=== PATIENT | female | born 1950 | race Caucasian/White ===

== ENCOUNTER → 2017-12-29 | Outpatient (CLI) | payer OTHER ==
[~2017-12-29] MED LIST: CALC500T51 PO; CALC600T4 PO; CELE200C PO; CHOL4PAC2 PO; CYCL1DRO EACHEYE; CYCL1DRO OP; LOPE2CAP94 PO; MESA10003 PR; MULT9LIQ5 PO; PANT40TA5 PO; RALO60TA PO; RISE35TA3 PO
== END | disposition home or self-care (01) ==
LOC: CFH 13:42
PROVIDERS: ATTEND Nurse Practitioner
DX: J84.9 Interstitial pulmonary disease, unspecified (principal)
CPT/HCPCS: 71250

== ENCOUNTER → 2018-01-22 | Outpatient (CLI) | payer OTHER ==
[~2018-01-22] MED LIST changes: +OMNIPAQUE 350 MG/ML, 100ML BOTTLE ONE
== END | disposition home or self-care (01) ==
LOC: CFH 08:02
PROVIDERS: ATTEND Family Medicine
DX: J92.9 Pleural plaque without asbestos (principal); J43.9 Emphysema, unspecified; R13.10 Dysphagia, unspecified; R05 Cough
CPT/HCPCS: 70491; 82565; Q9967

== ENCOUNTER 2018-01-23 10:53 | Emergency (ER) | payer OTHER ==
[~2018-01-23] VITALS: Ht 160 cm; Wt 65.5 kg
[~2018-01-23 10:53] MED LIST changes: -OMNIPAQUE 350 MG/ML, 100ML BOTTLE ONE
[2018-01-23 11:48] LABS: BASOPHILS # (AUTO) 0.05 x10^3/uL (0-0.1); BASOPHILS % (AUTO) 1 % (0-1); EOSINOPHILS # (AUTO) 0.16 x10^3/uL (0-0.4); EOSINOPHILS % (AUTO) 4 % (1-7); LYMPHOCYTES % (AUTO) 27 % (22-44); MD NO; MEAN CORPUSCULAR HEMOGLOBIN 33.5 pg (27.0-34.8); MEAN CORPUSCULAR HGB CONC 33.7 g/dL (32.4-35.8); MEAN CORPUSCULAR VOLUME 99.4 fL (80-100); MEAN PLATELET VOLUME 8.9 fL (7.4-10.4); MONOCYTES # (AUTO) 0.49 x10^3/uL (0.2-0.8); MONOCYTES % (AUTO) 13 % (2-9); NEUTROPHILS # (AUTO) 2.08 x10^3/uL (1.8-6.8); NEUTROPHILS % (AUTO) 55 % (42-75); PLATELET COUNT 244 x10^3/uL (130-400); RED BLOOD COUNT 4.39 x10^6/uL (3.82-5.3); RED CELL DISTRIBUTION WIDTH 12.6 % (9.6-15.2)
[2018-01-23 11:54] LABS: ALBUMIN 3.3 g/dL (3.4-5.0); ANION GAP 7 mmol/L (5-15); CALCIUM 9.1 mg/dL (8.5-10.1); CHLORIDE 105 mmol/L (98-107); CREATININE 0.46 mg/dL (0.55-1.02)
[2018-01-23 13:08] VITALS: BP 140/78
== END 2018-01-23 13:13 | disposition home or self-care (01) ==
LOC: ED 12:00
DX: L03.221 Cellulitis of neck (principal); M06.9 Rheumatoid arthritis, unspecified
CPT/HCPCS: 36415; 80048; 82040; 85025; 99284; J7512

== ENCOUNTER → 2018-04-21 | Outpatient (CLI) | payer MEDICARE, OTHER ==
[~2018-04-21] MED LIST changes: +VIT1CAPS16 PO; +[UNRECOGNIZED DRUG - CODE] IV; +prednisone PO
== END | disposition home or self-care (01) ==
LOC: WOUND 14:08
PROVIDERS: ATTEND Nurse Practitioner Family
DX: S31.40XA Unspecified open wound of vagina and vulva, initial encounter (principal); N81.83 Incompetence or weakening of rectovaginal tissue; N82.9 Female genital tract fistula, unspecified; J43.9 Emphysema, unspecified; L24.9 Irritant contact dermatitis, unspecified cause; M17.0 Bilateral primary osteoarthritis of knee; M81.0 Age-related osteoporosis without current pathological fracture; K21.9 Gastro-esophageal reflux disease without esophagitis; Z87.891 Personal history of nicotine dependence; X58.XXXA Exposure to other specified factors, initial encounter; Y93.89 Activity, other specified; Y92.89 Other specified places as the place of occurrence of the external cause; Y99.8 Other external cause status
CPT/HCPCS: 99215

== ENCOUNTER 2018-04-23 11:50 | Day surgery (SDC) | payer MEDICARE ==
[2018-04-22 12:21] LABS: MICROSCOPIC INDICATED
[2018-04-22 12:45] LABS: CULTURE INDICATED? YES
[~2018-04-23] VITALS: Ht 160 cm; Wt 61.3 kg
[2018-04-23 12:43] VITALS: BP 123/74
[2018-04-23] MEDS ORDERED: LACTATED RINGERS 1,000 ML IV SCH (13:11)
[2018-04-23] MEDS ORDERED: METOPROLOL 1 MG/ML, 5ML IV PRN (14:00)
[2018-04-23] MEDS ORDERED: ONDANSETRON 2MG/ML, 2ML IV PRN (14:00)
[2018-04-23] MEDS ORDERED: FENTANYL PF 100 MCG/2ML IV PRN (14:00)
[2018-04-23] MEDS ORDERED: LABETALOL 5MG/ML, 20ML IV PRN (14:00)
[2018-04-23] MEDS ORDERED: hydrALAzine 20 MG/ML, 1ML IV PRN (14:00)
[2018-04-23] MEDS ORDERED: PROPOFOL 10 MG/ML, 20ML ONE (14:10)
== END 2018-04-23 16:00 | disposition home or self-care (01) ==
LOC: OUT 11:50
PROVIDERS: ATTEND Internal Medicine Gastroenterology
DX: N82.3 Fistula of vagina to large intestine (principal); K52.9 Noninfective gastroenteritis and colitis, unspecified; K63.3 Ulcer of intestine; K21.9 Gastro-esophageal reflux disease without esophagitis; Z87.39 Personal history of other diseases of the musculoskeletal system and connective tissue; Z98.890 Other specified postprocedural states; Z90.49 Acquired absence of other specified parts of digestive tract; Z87.891 Personal history of nicotine dependence; Z88.8 Allergy status to other drugs, medicaments and biological substances; Z91.041 Radiographic dye allergy status
CPT/HCPCS: 45380; 81001; 87077; 87086; 87186; 88305; 93005; J2704; J7120

== ENCOUNTER → 2018-04-28 | Outpatient (CLI) | payer MEDICARE | END | disposition home or self-care (01) | LOC: WOUND 15:08 | PROVIDERS: ATTEND Nurse Practitioner Family | DX: L24.9 Irritant contact dermatitis, unspecified cause (principal); N81.83 Incompetence or weakening of rectovaginal tissue; N82.9 Female genital tract fistula, unspecified; J43.9 Emphysema, unspecified; M17.0 Bilateral primary osteoarthritis of knee; K21.9 Gastro-esophageal reflux disease without esophagitis; M81.0 Age-related osteoporosis without current pathological fracture; Z87.891 Personal history of nicotine dependence; Z90.49 Acquired absence of other specified parts of digestive tract | CPT/HCPCS: 99214 ==

== ENCOUNTER 2018-06-01 17:07 | Emergency (ER) | payer MEDICARE ==
[~2018-06-01] VITALS: Ht 160 cm; Wt 59.7 kg
[2018-06-01] MEDS ORDERED: ASPIRIN 81 MG TABLET CHEW PO ONE (18:00)
[2018-06-01 18:06] LABS: BASOPHILS # (AUTO) 0.05 x10^3/uL (0-0.1); BASOPHILS % (AUTO) 1 % (0-1); EOSINOPHILS # (AUTO) 0.22 x10^3/uL (0-0.4); EOSINOPHILS % (AUTO) 3 % (1-7); LYMPHOCYTES # (AUTO) 1.92 x10^3/uL (1-3.4); LYMPHOCYTES % (AUTO) 24 % (22-44); MD NO; MEAN CORPUSCULAR HGB CONC 33.2 g/dL (32.4-35.8); MEAN CORPUSCULAR VOLUME 84.5 fL (80-100); MEAN PLATELET VOLUME 6.7 fL (7.4-10.4); MONOCYTES # (AUTO) 0.52 x10^3/uL (0.2-0.8); MONOCYTES % (AUTO) 7 % (2-9); NEUTROPHILS # (AUTO) 5.34 x10^3/uL (1.8-6.8); NEUTROPHILS % (AUTO) 66 % (42-75); PLATELET COUNT 673 x10^3/uL (130-400); RED BLOOD COUNT 4.06 x10^6/uL (3.82-5.3); RED CELL DISTRIBUTION WIDTH 16.8 % (9.6-15.2)
[2018-06-01 18:18] LABS: ALBUMIN 2.3 g/dL (3.4-5.0); ANION GAP 6 mmol/L (5-15); CALCIUM 8.3 mg/dL (8.5-10.1); CHLORIDE 98 mmol/L (98-107); CREATININE 0.35 mg/dL (0.55-1.02)
[2018-06-01 18:22] LABS: TROPONIN I < 0.015 ng/mL (0.000-0.045)
--- NOTE | 2018-06-01 18:29 | NUR ---
Pt to 19 from lobby
[2018-06-01] MEDS ORDERED: ASPIRIN 81 MG TABLET CHEW ONE (18:31)
--- NOTE | 2018-06-01 18:51 | NUR ---
Pt resting on gurney connected to all monitors. Call light within reach. All safety measures in place. Family is at bedside. Call light within reach. Per pt, "I have been having a cough and chest pain for a couple of weeks. I have not had a fever, nausea, vomiting, diarrhea, or coughing anything up. I just don't feel well." NADN. Pt denies sob, n/v/d, trauma.
--- NOTE | 2018-06-01 19:07 | NUR ---
Provided bedside report to ARMANDO Ryan. All questions answered. Shelby assuming care of pt at this time.
--- NOTE | 2018-06-01 19:29 | NUR ---
RECEIVED BEDSIDE REPORT AND CARE FROM NARA ROBERTS. PT RESTING IN POSITION OF COMFORT. DENIES NEED TO USE RESTROOM, AWARE UA SAMPLE NEEDED. MALLORY OJEDA AT BEDSIDE FOR RECHECK, DISCUSSING DISCHARGE POC. CALL LIGHT IN REACH. FALL PRECUATIONS IN PLACE. SIDE RAILS UPX2. FAMILY AT BEDSIDE. REPORTS 10/31 "DISCOMFORT IN MY CHEST." DISCUSSED WITH MALLORY OJEDA AWARE, NO ORDERS RECEIVED FOR CHEST DISCOMFORT.
[2018-06-01] MEDS ORDERED: CEFTRIAXONE PMX 1GM/50ML 50 ML IV ONE (19:30)
[2018-06-01] MEDS ORDERED: AZITHROMYCIN 500 MG TABLET PO ONE (19:30)
[2018-06-01] MEDS ORDERED: CEFTRIAXONE PMX 1GM/50ML 50 ML ONE (19:49)
[2018-06-01] MEDS ORDERED: AZITHROMYCIN 250 MG TABLET ONE (19:49)
--- NOTE | 2018-06-01 20:39 | NUR ---
IV PLACED PER MALLORY OJEDA FOR IV ANTIBIOTICS, NO BLOOD CULTURES PRIOR TO ANTIBIOTIC ADMIN PER MALLORY OJEDA. PT RESTING COMFORTABLY. SR ON MONITOR. VSS. DENIES NEED TO USE RESTROOM. DISCUSSED PAIN WITH MALLORY OJEDA, AWARE, NO NEW ORDERS RECEIVED FOR PAIN, PT DECLINES NEED FOR PAIN MEDICATION AT THIS TIME. FAMILY AT BEDSIDE. CALL LIGHT IN REACH
--- NOTE | 2018-06-01 21:05 | NUR ---
PT UP FOR RECHECK, IV ANTIBIOTICS COMPLETED. PT REQUESTING TO GO HOME. AWAITING CHART AND DISCHARGE PAPERS FROM [facility].
[2018-06-01 21:49] VITALS: BP 114/65
== END 2018-06-01 22:01 | disposition home or self-care (01) ==
LOC: ED 19:26
DX: J15.9 Unspecified bacterial pneumonia (principal); R42 Dizziness and giddiness; K21.9 Gastro-esophageal reflux disease without esophagitis; M81.0 Age-related osteoporosis without current pathological fracture; M06.9 Rheumatoid arthritis, unspecified; Z87.891 Personal history of nicotine dependence
CPT/HCPCS: 36415; 71046; 80048; 82040; 83880; 84484; 85025; 93005; 96365; 99284; J0696

== ENCOUNTER 2018-09-02 13:59 | Outpatient (CLI) | payer MEDICARE ==
[~2018-09-02 13:59] MED LIST changes: +IBAN150T15 PO; +PRED10TA PO; +RISE35TA PO; -RISE35TA3 PO
[2018-09-02] MEDS ORDERED: ADAL40KI SC (14:52)
[2018-09-02] MEDS ORDERED: CHOL400C PO (14:52)
== END 2018-09-02 23:59 | disposition home or self-care (01) ==
LOC: STAR 13:59
PROVIDERS: ATTEND Otolaryngology
DX: D37.02 Neoplasm of uncertain behavior of tongue (principal); J35.01 Chronic tonsillitis; R94.31 Abnormal electrocardiogram [ECG] [EKG]
CPT/HCPCS: 93005

== ENCOUNTER 2018-09-08 07:52 | Day surgery (SDC) | payer MEDICARE ==
[~2018-09-08] VITALS: Ht 160 cm; Wt 58.4 kg
[~2018-09-08 07:52] MED LIST changes: +ADAL40KI SC; +CHOL400C PO; +OXYMETAZOLINE NASAL SPRAY 0.05%, 15ML ONE
[2018-09-08] MEDS ORDERED: LACTATED RINGERS 1,000 ML IV SCH (08:10)
[2018-09-08] MEDS ORDERED: ACETAMINOPHEN 500 MG TABLET PO ONE (08:30)
[2018-09-08] MEDS ORDERED: GABAPENTIN 300 MG CAPSULE PO ONE (08:30)
[2018-09-08 08:37] VITALS: BP 109/68
[2018-09-08] MEDS ORDERED: FENTANYL PF 100 MCG/2ML ONE ×2 (08:43→10:23)
[2018-09-08] MEDS ORDERED: MIDAZOLAM 1 MG/ML, 2ML ONE (08:43)
[2018-09-08] MEDS ORDERED: EPINEPHRINE TOPICAL SOLN 1 MG/ML, 30ML ONE (09:11)
[2018-09-08] MEDS ORDERED: LABETALOL 5MG/ML, 20ML IV PRN (09:30)
[2018-09-08] MEDS ORDERED: hydrALAzine 20 MG/ML, 1ML IV PRN (09:30)
[2018-09-08] MEDS ORDERED: DIPHENHYDRAMINE 50 MG/ML, 1ML IVPush PRN (09:30)
[2018-09-08] MEDS ORDERED: MEPERIDINE/PF 25MG/0.5ML IVPush PRN (09:30)
[2018-09-08] MEDS ORDERED: PROCHLORPERAZINE 5 MG/ML, 2ML IV PRN (09:30)
[2018-09-08] MEDS ORDERED: HALOPERIDOL 5 MG/ML IV PRN (09:30)
[2018-09-08] MEDS ORDERED: METOPROLOL 1 MG/ML, 5ML IV PRN (09:30)
[2018-09-08] MEDS ORDERED: OXYcodone 5 MG/5 ML ORAL.SOL UDC PO PRN (09:30)
[2018-09-08] MEDS ORDERED: HYDROmorphone 2 MG/ML, 1ML IVPush PRN (09:30)
[2018-09-08] MEDS ORDERED: PROMETHAZINE 25 MG/ML, 1ML IV PRN (09:30)
[2018-09-08] MEDS ORDERED: SUCCINYLCHOLINE 20 MG/ML, 10ML ONE (09:57)
[2018-09-08] MEDS ORDERED: ONDANSETRON 2MG/ML, 2ML ONE (09:57)
[2018-09-08] MEDS ORDERED: PROPOFOL 10 MG/ML, 20ML ONE (09:57)
[2018-09-08] MEDS ORDERED: GLYCOPYRROLATE 0.2MG/1ML, 5ML ONE (09:57)
[2018-09-08] MEDS ORDERED: DEXAMETHASONE 4 MG/ML, 1ML ONE (09:57)
[2018-09-08] MEDS ORDERED: ROCURONIUM 10MG/ML,5ML ONE (09:57)
[2018-09-08] MEDS ORDERED: NEOSTIGMINE 1 MG/ML, 10ML ONE (09:57)
[2018-09-08] MEDS ORDERED: CEFAZOLIN 1,000 MG ONE (09:57)
[2018-09-08] MEDS: FENTANYL PF 100 MCG/2ML IV PRN ×2 (10:21→10:26)
[2018-09-08] MEDS ORDERED: OXYcodone 5 MG/5 ML ORAL.SOL UDC ONE ×2 (10:23→10:24)
== END 2018-09-08 13:05 | disposition home or self-care (01) ==
LOC: OR 07:52
PROVIDERS: ATTEND Otolaryngology
DX: J35.01 Chronic tonsillitis (principal); J02.9 Acute pharyngitis, unspecified; D37.02 Neoplasm of uncertain behavior of tongue; M06.9 Rheumatoid arthritis, unspecified; Z88.8 Allergy status to other drugs, medicaments and biological substances; Z79.899 Other long term (current) drug therapy
CPT/HCPCS: 31525; 42826; 88305; J0330; J0690; J1100; J2405; J2704; J2710; J3010; J7120; J2250

== ENCOUNTER → 2019-08-20 | Outpatient (CLI) | payer MEDICARE ==
[~2019-08-20] MED LIST changes: +LOPE-114 PO; -LOPE2CAP94 PO; -OXYMETAZOLINE NASAL SPRAY 0.05%, 15ML ONE
== END | disposition home or self-care (01) ==
LOC: CVU 07:28
PROVIDERS: ATTEND Family Medicine
DX: I08.0 Rheumatic disorders of both mitral and aortic valves (principal); R60.9 Edema, unspecified; R63.4 Abnormal weight loss
CPT/HCPCS: 93306; 93922; 93925; 93970

== ENCOUNTER 2019-10-20 05:25 | Day surgery (SDC) | payer MEDICARE ==
[~2019-10-20] VITALS: Ht 158.8 cm; Wt 53.7 kg
[~2019-10-20 05:25] MED LIST changes: +CEFD300C37 PO; +LACT1CAP35 PO; +PRED20TA PO; +SODI30SP NS
[2019-10-20] MEDS ORDERED: LACTATED RINGERS 1,000 ML IV SCH (06:19)
[2019-10-20] MEDS ORDERED: METH2.5T PO (06:28)
[2019-10-20] MEDS ORDERED: PRED10TA PO (06:28)
[2019-10-20] MEDS ORDERED: CHLORHEXIDINE 15 ML UDC MM ONE (06:30)
[2019-10-20] MEDS ORDERED: BACITRACIN 50,000 UNIT ONE (06:47)
[2019-10-20] MEDS ORDERED: BUPIVACAINE/PF 0.5% ONE (06:47)
[2019-10-20] MEDS ORDERED: EPINEPHRINE 1 MG/ML, 1ML ONE (06:47)
[2019-10-20 06:53] VITALS: BP 136/81
[2019-10-20] MEDS ORDERED: FENTANYL PF 100 MCG/2ML ONE ×2 (07:11→08:15)
[2019-10-20] MEDS ORDERED: methylPREDNISolone SOD SUCC 125 MG/2 ML ONE (07:29)
[2019-10-20] MEDS ORDERED: HYDROCORTISONE 100 MG INJ. ONE (07:30)
[2019-10-20] MEDS ORDERED: EPHEDRINE 50 MG/ML, 1ML ONE (08:47)
[2019-10-20] MEDS ORDERED: CEFAZOLIN 1,000 MG ONE ×2 (08:47)
[2019-10-20] MEDS ORDERED: PROPOFOL 10 MG/ML, 20ML ONE (08:47)
[2019-10-20] MEDS ORDERED: ONDANSETRON 2MG/ML, 2ML ONE (08:47)
[2019-10-20] MEDS ORDERED: ONDANSETRON 2MG/ML, 2ML IVPush PRN (09:00)
[2019-10-20] MEDS ORDERED: FENTANYL PF 100 MCG/2ML IV PRN (09:00)
[2019-10-20] MEDS ORDERED: OXYcodone 5 MG/5 ML ORAL.SOL UDC PO PRN (09:00)
[2019-10-20] MEDS ORDERED: ACETAMINOPHEN 325 MG TABLET PO PRN (09:00)
[2019-10-20] MEDS ORDERED: ROPIvacaine/PF 0.5%, 30 ML ONE (09:44)
== END 2019-10-20 11:03 | disposition home or self-care (01) ==
LOC: OUT 05:25
PROVIDERS: ATTEND Orthopaedic Surgery
DX: M06.831 Other specified rheumatoid arthritis, right wrist (principal); Z11.59 Encounter for screening for other viral diseases; M65.831 Other synovitis and tenosynovitis, right forearm; J44.9 Chronic obstructive pulmonary disease, unspecified; M06.9 Rheumatoid arthritis, unspecified; M81.0 Age-related osteoporosis without current pathological fracture; Z79.899 Other long term (current) drug therapy; Z87.891 Personal history of nicotine dependence; Z88.8 Allergy status to other drugs, medicaments and biological substances; Z91.041 Radiographic dye allergy status; Z99.81 Dependence on supplemental oxygen
CPT/HCPCS: 25116; 26536; 36415; 64415; 87635; C1776; J0171; J0690; J1720; J2405; J2704; J2795; J3010; J7120; J2930

== ENCOUNTER 2019-12-16 16:21 | Inpatient (IN) | payer MEDICARE ==
[~2019-12-16] VITALS: Ht 157.5 cm; Wt 53.0 kg
[~2019-12-16 16:21] MED LIST changes: -CALC600T4 PO; +CALC600T60 PO; +METH2.5T PO; -PANT40TA5 PO; +PANT40TA6 PO
--- NOTE | 2019-12-16 16:49 | NUR ---
OBSERVED PT AMBULATORY TO ED ROOM W/ SLOW GAIT USING OWN CANE.
--- NOTE | 2019-12-16 17:13 | NUR ---
C/O BACK PAIN, CONSTIPATION, RUQ & LUQ PAIN. LAST BM: HARD ONE THIS AFTERNOON. TRIED METAMUCIL. DENIES N/V.
[2019-12-16] MEDS ORDERED: PRED5TAB PO (17:21)
[2019-12-16] MEDS ORDERED: SODIUM CHLORIDE 0.9% 1,000ML IV ONE (17:30)
[2019-12-16] MEDS ORDERED: SODIUM CHLORIDE FLUSH 10ML SYR IVF ONE (17:30)
[2019-12-16] MEDS ORDERED: ONDANSETRON 2MG/ML, 2ML IVPush ONE (17:30)
--- NOTE | 2019-12-16 17:41 | NUR ---
PT ENDORSED TO CHEVY HERNÁNDEZ RN.
[2019-12-16 17:47] LABS: BASOPHILS % (AUTO) 0 % (0-1); EOSINOPHILS # (AUTO) 0.02 x10^3/uL (0-0.4); EOSINOPHILS % (AUTO) 1 % (1-7); LYMPHOCYTES # (AUTO) 1.13 x10^3/uL (1-3.4); LYMPHOCYTES % (AUTO) 23 % (22-44); MD NO; MEAN CORPUSCULAR HEMOGLOBIN 30.5 pg (27.0-34.8); MEAN CORPUSCULAR HGB CONC 32.9 g/dL (32.4-35.8); MEAN PLATELET VOLUME 7.8 fL (7.4-10.4); MONOCYTES # (AUTO) 0.42 x10^3/uL (0.2-0.8); MONOCYTES % (AUTO) 9 % (2-9); NEUTROPHILS # (AUTO) 3.33 x10^3/uL (1.8-6.8); NEUTROPHILS % (AUTO) 68 % (42-75); PLATELET COUNT 382 x10^3/uL (130-400); RED BLOOD COUNT 4.57 x10^6/uL (3.82-5.3); RED CELL DISTRIBUTION WIDTH 18.5 % (9.6-15.2)
[2019-12-16 17:53] LABS: MICROSCOPIC INDICATED
--- NOTE | 2019-12-16 17:55 | NUR ---
TASK RN: IV STARTED, IV FLUIDS INFUSING. PT DENIES NAUSEA AT THIS TIME. LAVONNE HELD. PT FAMILY AT BEDSIDE, PT AND FAMILY UPDATED ON POC
[2019-12-16 18:00] LABS: ALANINE AMINOTRANSFERASE 17 U/L (12-78); ALBUMIN 2.9 g/dL (3.4-5.0); ANION GAP 6 mmol/L (5-15); CALCIUM 9.2 mg/dL (8.5-10.1); CHLORIDE 103 mmol/L (98-107); CREATININE 0.43 mg/dL (0.55-1.02)
[2019-12-16 18:02] LABS: ALKALINE PHOSPHATASE 69 U/L (45-117); BILIRUBIN,TOTAL 0.4 mg/dL (0.2-1.0); TOTAL PROTEIN 7.3 g/dL (6.4-8.2)
--- NOTE | 2019-12-16 18:25 | NUR ---
REPORT TO ROLO ROBERTS
--- NOTE | 2019-12-16 19:22 | NUR ---
PT STATES HER LAST FALL WAS SOMETIME BETWEEN JULY AND SEPTEMBER.
--- NOTE | 2019-12-16 19:32 | NUR ---
PT AMBULATORY TO & FROM [facility] W/ STEADY GAIT, USING OWN CANE.
--- NOTE | 2019-12-16 19:33 | NUR ---
PT DENIES NAUSEA; PRATIMA HELD
[2019-12-16] MEDS ORDERED: ACETAMINOPHEN 500 MG TABLET PO ONE (20:00)
[2019-12-16] MEDS ORDERED: ONDANSETRON ODT 4 MG PO ONE (20:00)
[2019-12-16] MEDS ORDERED: SODIUM CHLORIDE NASAL SPRAY 45ML BOTTLE NAS PRN (20:30)
[2019-12-16] MEDS ORDERED: METHOTREXATE 2.5 MG TABLET PO SCH (20:30)
[2019-12-16] MEDS ORDERED: TEMPLATE NON-FORMULARY MED. (Ibandronate Sodium** (Boniva**) 1 TAB) PO SCH (20:30)
[2019-12-16] MEDS ORDERED: LIDODERM 5% PATCH TD PRN (21:00)
[2019-12-16] MEDS ORDERED: POLYETHYLENE GLYCOL 17 GM PACKET PO PRN (21:00)
[2019-12-16] MEDS ORDERED: METHOCARBAMOL 500 MG TABLET PO PRN (21:00)
[2019-12-16] MEDS ORDERED: ACETAMINOPHEN 325 MG TABLET PO PRN (21:00)
[2019-12-16] MEDS ORDERED: CEFTRIAXONE PMX 1GM/50ML 50 ML IV SCH (21:00)
[2019-12-16] MEDS ORDERED: ONDANSETRON ODT 4 MG PO PRN (21:00)
--- NOTE | 2019-12-16 21:09 | NUR ---
PT REPORT TO ARMANDO WEISS FOR ROOM [id number]
[2019-12-16] MEDS ORDERED: CEFTRIAXONE PMX 1GM/50ML 50 ML ONE (21:32)
[2019-12-16] MEDS ORDERED: ACETAMINOPHEN 500 MG TABLET ONE (21:32)
--- NOTE | 2019-12-16 21:47 | NUR ---
NICOLE RILEY, INFUSING VIA PUMP, IV SITE PATENT. TYLENOL GIVEN. PT AWAITING TRANSFER TO UNIT.
[2019-12-16 22:30] VITALS: BP 152/78
[2019-12-16] MEDS ORDERED: METHOTREXATE MC SCH (22:30)
[2019-12-16] MEDS: BISACODYL 10 MG SUPP PR SCH (23:31)
[2019-12-16] MEDS: SODIUM CHLORIDE FLUSH 10ML SYR IVF SCH (23:36)
[2019-12-16] MEDS: LACTULOSE 10 GM/15 ML UDC PO SCH (23:36)
[2019-12-16] MEDS: TEMPLATE NON-FORMULARY MED. (Cyclosporine (Restasis) 1 DROP) EACHEYE SCH (23:36)
[2019-12-17 00:20] VITALS: BP 161/92
[2019-12-17 07:06] VITALS: BP 125/67
[2019-12-17] MEDS: CHOLECALCIFEROL 400 UNITS TABLET PO SCH (08:46)
[2019-12-17] MEDS: RALOXIFENE 60 MG TABLET PO SCH (08:46)
[2019-12-17] MEDS: MULTIVITAMINS/MINERALS TABLET PO SCH (08:46)
[2019-12-17] MEDS: BISACODYL 10 MG SUPP PR SCH (08:47)
[2019-12-17] MEDS: LACTULOSE 10 GM/15 ML UDC PO SCH ×2 (08:47→21:20)
[2019-12-17] MEDS: TEMPLATE NON-FORMULARY MED. (Cyclosporine (Restasis) 1 DROP) EACHEYE SCH ×2 (08:52→21:00)
[2019-12-17] MEDS: SODIUM CHLORIDE FLUSH 10ML SYR IVF SCH ×2 (09:01→21:20)
[2019-12-17] MEDS: OXYcodone IR 5MG TABLET PO PRN ×2 (14:03→21:22)
[2019-12-17 14:30] VITALS: BP 125/76
[2019-12-17 19:03] VITALS: BP 100/63
[2019-12-18 03:43] VITALS: BP 133/69
[2019-12-18 07:36] VITALS: BP 114/71
[2019-12-18] MEDS: SODIUM CHLORIDE FLUSH 10ML SYR IVF SCH (09:00)
[2019-12-18] MEDS: TEMPLATE NON-FORMULARY MED. (Cyclosporine (Restasis) 1 DROP) EACHEYE SCH (09:43)
[2019-12-18] MEDS: CHOLECALCIFEROL 400 UNITS TABLET PO SCH (09:55)
[2019-12-18] MEDS: MULTIVITAMINS/MINERALS TABLET PO SCH (09:55)
[2019-12-18] MEDS: OXYcodone IR 5MG TABLET PO PRN (09:55)
[2019-12-18] MEDS: BISACODYL 10 MG SUPP PR SCH (09:55)
[2019-12-18] MEDS: RALOXIFENE 60 MG TABLET PO SCH (09:55)
[2019-12-18] MEDS: LACTULOSE 10 GM/15 ML UDC PO SCH (09:56)
[2019-12-18] MEDS ORDERED: OXYC5CAP2 PO ×3 (12:26→12:28)
[2019-12-18] MEDS ORDERED: POLY17PO5 PO (12:26)
[2019-12-18] MEDS ORDERED: OXYC5TAB3 PO (14:24)
[2019-12-18 14:31] VITALS: BP 113/71
[2019-12-22] MEDS ORDERED: METHOTREXATE 2.5 MG TABLET PO SCH (09:00)
== END 2019-12-18 15:54 | disposition home health service (06) | DRG 543 ==
LOC: ED 19:18 → EDIP 20:11 → 3N 22:02 → DCLOUNGE 12-18 15:49
PROVIDERS: ADMIT Internal Medicine; ATTEND Internal Medicine
DX: M48.54XA Collapsed vertebra, not elsewhere classified, thoracic region, initial encounter for fracture (principal); N39.0 Urinary tract infection, site not specified; N82.3 Fistula of vagina to large intestine; J84.9 Interstitial pulmonary disease, unspecified; M48.56XA Collapsed vertebra, not elsewhere classified, lumbar region, initial encounter for fracture; K56.41 Fecal impaction; Z88.8 Allergy status to other drugs, medicaments and biological substances; Z91.041 Radiographic dye allergy status; F17.210 Nicotine dependence, cigarettes, uncomplicated; K58.9 Irritable bowel syndrome, unspecified; M06.9 Rheumatoid arthritis, unspecified; Z83.3 Family history of diabetes mellitus; K21.9 Gastro-esophageal reflux disease without esophagitis
CPT/HCPCS: 36415; 72146; 72148; 74176; 80053; 81001; 85025; 87086; 99285; G0378; J0696; J7030; J7512